=== PATIENT | female | born 2000 | race Two or more races ===

== ENCOUNTER 2023-05-17 10:51 | Emergency (ER) | payer OTHER ==
[~2023-05-17] VITALS: Ht 149.9 cm; Wt 49.0 kg
[2023-05-17 11:22] LABS: Basophils # (auto) 0.1 10 ^3/uL (0-0.2); Basophils % (auto) 0.3 % (0.0-2.0); Eosinophils # (auto) 0 10 ^3/uL (0-0.8); Hematocrit 36.1 % (36.0-46.0); Hemoglobin 12.2 g/dL (12.2-16.2); Lymphocytes # (auto) 1.1 10 ^3/uL (0.4-5.4); Lymphocytes % (auto) 5.2 % (10.0-50.0); Mean Corpuscular Hemoglobin 28.1 pg (28.0-32.0); Mean Corpuscular Hgb Conc. 33.8 g/dL (32.0-36.0); Mean Corpuscular Volume 83.3 fL (80.0-100.0); Monocytes # (auto) 1.9 10 ^3/uL (0-1.3); Monocytes % (auto) 9.1 % (0.0-12.0); Neutrophils % (auto) 85.4 % (37.0-80.0); Red Blood Cells 4.33 10^6/uL (4.0-5.20); Red Cell Distribution Width 13.3 % (11.8-14.3)
[2023-05-17 11:58] LABS: Alanine Aminotransferase 15 U/L (7-40); Alkaline Phosphatase 53 U/L (46-116); Anion Gap 9 (5-15); Aspartate Aminotransferase 17 U/L (13-40); BUN/Creatinine Ratio 11.5 (10.0-20.0); Blood Urea Nitrogen 13 mg/dL (9-23); Calcium 9.4 mg/dL (8.7-10.4); Carbon Dioxide 27 mmol/L (20-30); Chloride 101 mmol/L (98-107); Glucose 134 mg/dL (74-106); Potassium 3.2 mmol/L (3.5-5.1); Sodium 137 mmol/L (136-145)
[2023-05-17 11:59] LABS: Bilirubin, Total 0.6 mg/dL (0.2-1.0); Total Protein 8.3 g/dL (5.7-8.2)
[2023-05-17 12:49] LABS: Urine Bacteria NONE SEEN /hpf (None Seen); Urine Blood 1+ /uL (Negative); Urine Clarity HAZY (Clear); Urine Color Yellow (Yellow); Urine Mucus FEW (None Seen); Urine Protein, UAD 2+ (Negative); Urine Specific Gravity 1.021 (1.001-1.035); Urine WBC 361 /hpf (0 - 5); Urine WBC Clumps PRESENT /hpf (None Seen)
[2023-05-17] MEDS ORDERED: PROCHLORPERAZINE EDISYLATE 5 MG/ML 2ML VIAL IM ONE (13:00)
[2023-05-17] MEDS ORDERED: cefTRIAXone W LIDOCAINE 1 GM IM IM ONE (13:00)
[2023-05-17] MEDS ORDERED: AZITHROMYCIN 250 MG TAB PO ONE (14:30)
[2023-05-17] MEDS ORDERED: ZOFR4T PO (14:53)
[2023-05-17] MEDS ORDERED: CEPH500C PO (14:53)
[2023-05-17 15:11] VITALS: BP 109/57; PULSE 106; RESP 20; TEMP 98.6; O2SAT 100
== END 2023-05-17 15:12 | disposition home or self-care (01) ==
LOC: ER 10:51
DX: N39.0 Urinary tract infection, site not specified (principal); R11.2 Nausea with vomiting, unspecified
CPT/HCPCS: 36415; 80053; 81001; 81025; 85025; 96372; 99284; J0696; J0780